=== PATIENT | male | born 1940 | race Caucasian/White ===

== ENCOUNTER 2016-11-27 13:05 | Day surgery (SDC) | payer MEDICARE, BC ==
[~2016-11-27 13:05] MED LIST: ALPR2TAB3 PO; CLON0.5T PO; CLOP75TA PO; FEXO180 PO; FINA1TAB2 PO; GABA300C3 PO; HYDR-3129 PO; PROP10TA6 PO; PROT40TA PO; RIVA20 PO; TAMS5CAP PO; ULTR50TA PO
[2016-11-27 13:25] VITALS: BP 129/65; PULSE 64; RESP 18; TEMP 98.1; O2SAT 96
[2016-11-27] MEDS ORDERED: ZYRT10CA PO (13:53)
[2016-11-27] MEDS ORDERED: LACTCAP8 PO (13:53)
[2016-11-27] MEDS ORDERED: TAMS0.4C4 PO (13:53)
[2016-11-27] MEDS ORDERED: TRAM50TA PO (13:53)
[2016-11-27] MEDS ORDERED: ALPR.25 PO (13:53)
[2016-11-27] MEDS ORDERED: GABA300C5 PO (13:53)
[2016-11-27] MEDS ORDERED: FINA5TAB2 PO (13:53)
[2016-11-27] MEDS ORDERED: XARE20TA PO (13:53)
[2016-11-27] MEDS ORDERED: ATOR40TA16 PO (13:53)
[2016-11-27] MEDS ORDERED: OMEP40CA2 PO (13:53)
--- NOTE | 2016-11-27 15:13 | RADRPT ---
EXAM DATE/TIME: 11/27/2016 00:00 [facility] COMPARISON : No previous studies available for comparison. INDICATIONS : consult for renal cryoablation OBJECTIVE: Temperature: 98.1 Heart Rate: 64 Blood Pressure: 129/65 Respiratory: 18 Oximetry: 96% PNEUMONIA VACCINE: YES HISTORY OF PRESENT ILLNESS: Incidentally discovered solid left renal mass. PAST MEDICAL HISTORY : 1. AFIB 2. Cardiovascular disease. 3. Peripheral vascular disease. 6. PAST SURGICAL HISTORY : 1. CABG 2. Peripheral vascular stent. 3. Lobectomy. 4. BILATERAL HERNIA REPAIR 5. AFIB ABLATION 6. CARDIAC STENT SOCIAL HISTORY : No alcohol use. Tobacco;former. ALLERGIES: 1. NKDA 1. Xarelto (Rivaroxaban) 20 mg q.d. 2. Prilosec (Omeprazole) 40 mg q.d. 3. ATORVASTATIN 40 mg q.d. 4. FINASTERIDE 5 mg q.d. 5. TAMSULOSIN 0.4 mg q.d. 6. GABAPENTIN 300 mg q.d. 7. XANAX 0.25 mg prn 8. TRAMADOL 50 mg prn 9. PROBIOTIC q.d. 10. ZYRTEC 10 mg q.d. IMAGING STUDIES: Outside contrast MRI revealing slightly greater than 2 cm solid left renal mass arising superficially in the posterolateral cortex. No signs of local or regional metastatic disease. ASSESSMENT: Patient appears to be an excellent candidate for renal biopsy and cryoablation. PLAN: Patient scheduled for renal biopsy and cryoablation tomorrow Rodney Payton MD on November 27, 2016 at 15:09 Board Certified Radiologist. This report was verified electronically.
== END 2016-11-27 14:46 | disposition home or self-care (01) ==
LOC: HROP 13:05 → HRIP 13:07 → HROP 14:46
PROVIDERS: ATTEND Urology
DX: N28.89 Other specified disorders of kidney and ureter (principal); I73.9 Peripheral vascular disease, unspecified; I48.91 Unspecified atrial fibrillation; I25.10 Atherosclerotic heart disease of native coronary artery without angina pectoris; Z95.1 Presence of aortocoronary bypass graft; Z95.5 Presence of coronary angioplasty implant and graft; Z87.891 Personal history of nicotine dependence

== ENCOUNTER 2016-11-28 06:43 | Day surgery (SDC) | payer MEDICARE, BC ==
[~2016-11-28] VITALS: Ht 181.6 cm; Wt 76.4 kg
[~2016-11-28 06:43] MED LIST changes: +ALPR.25 PO; -ALPR2TAB3 PO; +ATOR40TA16 PO; -CLON0.5T PO; -CLOP75TA PO; -FEXO180 PO; -FINA1TAB2 PO; +FINA5TAB2 PO; -GABA300C3 PO; +GABA300C5 PO; -HYDR-3129 PO; +LACTCAP8 PO; +OMEP40CA2 PO; -PROP10TA6 PO; -PROT40TA PO; -RIVA20 PO; +TAMS0.4C4 PO; -TAMS5CAP PO; +TRAM50TA PO; -ULTR50TA PO; +XARE20TA PO; +ZYRT10CA PO
[2016-11-28 07:05] VITALS: BP 125/63; PULSE 57; RESP 20; TEMP 97.6; O2SAT 95
[2016-11-28 07:53] LABS: AUTOMATED NEUTROPHIL # 1.4 TH/MM3 (1.8-7.7); BASOPHIL % 0.9 % (0.0-2.0); HEMATOCRIT 35.2 % (39.0-51.0); HEMO FLAGS DIFF FINAL; LYMPH % 28.3 % (9.0-44.0); LYMPHOCYTE # 0.9 TH/MM3 (1.0-4.8); MEAN CELL VOLUME 87.6 FL (80.0-100.0); MEAN CORPUSCULAR HEMOGLOBIN 30.4 PG (27.0-34.0); MEAN CORPUSCULAR HGB CONC 34.7 % (32.0-36.0); MONO % 22.7 % (0.0-8.0); NEUT % 47.1 % (16.0-70.0); PLATELET COUNT 230 TH/MM3 (150-450); RED BLOOD COUNT 4.02 MIL/MM3 (4.50-5.90); RED CELL DISTRIBUTION WIDTH 14.2 % (11.6-17.2); WHITE BLOOD COUNT 3.1 TH/MM3 (4.0-11.0)
[2016-11-28] MEDS ORDERED: SODIUM CHLORID 0.9% 500 ML IV SCH (08:00)
[2016-11-28] MEDS ORDERED: SODIUM CHLOR 0.9% 1000 ML INJ 1,000 ML IV SCH (08:00)
[2016-11-28] MEDS ORDERED: LACTATED RINGER'S 1000 ML IV SCH (08:00)
[2016-11-28 08:05] LABS: APTT (PATIENT) 27.5 SEC (24.3-30.1); INTERNATIONAL NORMALIZED RATIO 1.1 RATIO; PROTHROMBIN TIME - PATIENT 11.7 SEC (9.8-11.6)
[2016-11-28 08:07] LABS: BICARBONATE 27.7 MEQ/L (21.0-32.0); POTASSIUM 4.1 MEQ/L (3.5-5.1)
[2016-11-28] MEDS ORDERED: METOPROLOL TARTRATE 25 MG TAB PO PRN (08:15)
[2016-11-28] MEDS ORDERED: INSULIN HUMAN REGULAR 1,000 UNITS/10 ML VIAL SQ PRN (08:15)
[2016-11-28] MEDS ORDERED: ceFAZolin 2 GM PREMIX 50 ML IV SCH (08:15)
[2016-11-28] MEDS ORDERED: LIDOCAINE 1%/EPINEPHrine 1:100,000 SOLN 20 ML VIAL ONE (08:17)
--- NOTE | 2016-11-28 09:14 | EKG ---
Date Performed: 11/28/2016 Time Performed: 07:15:26 PTAGE: 76 years EKG: SINUS BRADYCARDIA BORDERLINE ECG NO PREVIOUS TRACING DOCTOR: Mynor Cramer Interpretating Date/Time 11/28/2016 09:13:48
[2016-11-28] MEDS ORDERED: NEOSTIGMINE METHYLSULFATE 10 MG/10 ML VIAL IV PUSH ONE (11:44)
[2016-11-28] MEDS ORDERED: PHENYLEPH/NS 1000 MCG/10 ML SYR IV ONE (11:44)
[2016-11-28] MEDS ORDERED: ePHEDrine/NS 25 MG/5 ML SYR IV ONE (11:44)
[2016-11-28] MEDS ORDERED: ONDANSETRON HCL 4 MG/2 ML VIAL IV PUSH ONE (11:44)
[2016-11-28] MEDS ORDERED: PROPOFOL 200 MG/20 ML AMP IV ONE (11:44)
[2016-11-28] MEDS ORDERED: DO NOT ADM ANY ANTICOAGULANT DRUGS XX PRN (13:15)
[2016-11-28] MEDS ORDERED: PILL SPLITTER OTHER PRN (13:30)
[2016-11-28] MEDS ORDERED: fentaNYL CITRATE 250 MCG/5 ML AMP ONE (13:31)
[2016-11-28] MEDS ORDERED: MORPHINE SULFATE 4 MG/ML INJ ONE (13:32)
[2016-11-28 14:00] LABS: AUTOMATED NEUTROPHIL # 1.2 TH/MM3 (1.8-7.7); BASOPHIL % 0.6 % (0.0-2.0); EOSINOPHIL % 0.6 % (0.0-4.0); HEMATOCRIT 33.2 % (39.0-51.0); HEMO FLAGS DIFF FINAL; LYMPH % 31.5 % (9.0-44.0); LYMPHOCYTE # 0.8 TH/MM3 (1.0-4.8); MEAN CELL VOLUME 87.4 FL (80.0-100.0); MEAN CORPUSCULAR HEMOGLOBIN 29.8 PG (27.0-34.0); MEAN CORPUSCULAR HGB CONC 34.1 % (32.0-36.0); MONO % 19.4 % (0.0-8.0); NEUT % 47.9 % (16.0-70.0); PLATELET COUNT 208 TH/MM3 (150-450); RED CELL DISTRIBUTION WIDTH 14.2 % (11.6-17.2); WHITE BLOOD COUNT 2.5 TH/MM3 (4.0-11.0)
[2016-11-28] MEDS ORDERED: HYDROmorphone HCL 2 MG TAB PO PRN (14:00)
[2016-11-28 14:30] VITALS: BP 141/79; PULSE 67; RESP 20; TEMP 97.7; O2SAT 95
--- NOTE | 2016-11-28 14:32 | PD.RAD ---
Post CT Procedure Prog Note Pre Procedure Diagnosis: (1) Left renal mass Post Procedure Diagnosis: (1) Left renal mass Procedure Date: Nov 28, 2016 Supervising Radiologist: Rodney Payton Proceduralist/Assist: RT Anthony(R)(CT) Anesthesia: General Plan of Activity Patient to Unit: PACU Patient Condition: Good See PACS Report for procedural detail/treatment Biopsy Side: Left Biopsy Procedure: Kidney Specimen: Core Biopsy Additional Detail: with cryoablation Rodney Payton MD Nov 28, 2016 14:32
[2016-11-28 15:00] VITALS: BP 120/66; PULSE 68; RESP 20; O2SAT 94
[2016-11-28 15:22] LABS: BASOPHIL % 0.4 % (0.0-2.0); EOSINOPHIL % 0.2 % (0.0-4.0); HEMATOCRIT 32.9 % (39.0-51.0); HEMO FLAGS DIFF FINAL; LYMPH % 13.1 % (9.0-44.0); LYMPHOCYTE # 0.7 TH/MM3 (1.0-4.8); MEAN CELL VOLUME 87.6 FL (80.0-100.0); MEAN CORPUSCULAR HEMOGLOBIN 30.4 PG (27.0-34.0); MEAN CORPUSCULAR HGB CONC 34.7 % (32.0-36.0); MONO % 12.2 % (0.0-8.0); NEUT % 74.1 % (16.0-70.0); PLATELET COUNT 209 TH/MM3 (150-450); RED BLOOD COUNT 3.76 MIL/MM3 (4.50-5.90); RED CELL DISTRIBUTION WIDTH 14.3 % (11.6-17.2); WHITE BLOOD COUNT 5.4 TH/MM3 (4.0-11.0)
[2016-11-28 15:30] VITALS: BP 131/67; PULSE 72; RESP 20; O2SAT 94
--- NOTE | 2016-11-28 15:57 | RADRPT ---
EXAM DATE/TIME: 11/28/2016 10:49 INDICATIONS : Left renal mass Anesthesia and pain control was provided by the Anesthesia department. DEVICE(S): 1.) 17 gauge Cryoablation probe x3 MEDICAL HISTORY : Cardiovascular disease. SURGICAL HISTORY : None. ENCOUNTER: Initial ACUITY: 1 day PAIN SCORE: 0/10 LOCATION: Left upper quadrant PROCEDURE : 1. CT guided cryoablation. Under sterile conditions and using aseptic technique with CT guidance the mass was localized and sati sfactory approach was taken to access the lesion. Using automated exposure control and adjustment of the mA and/or kV according to patient size, radiation dose was kept as low as reasonably achievable to obtain optimal diagnostic quality images. [employer] Cryoprobes were employed using percutaneous technique employing the prescribed probes. A freeze-thaw, freeze-thaw technique was employed and serial imaging demonstrated an ice ball encomp assing the entire lesion. Post procedure images demonstrate expected postoperative changes without e vidence of hematoma. CONCLUSION: Uncomplicated cryoablation as above. Rodney Payton MD on November 28, 2016 at 15:54 Board Certified Radiologist. This report was verified electronically.
[2016-11-28 16:16] VITALS: BP 109/66; PULSE 72; RESP 20; O2SAT 97
--- NOTE | 2016-11-29 14:05 | RADRPT ---
EXAM DATE/TIME: 11/28/2016 10:49 [facility] COMPARISON: No previous studies available for comparison. INDICATIONS : Left renal mass. BIOPSY SITE: Left Anesthesia and pain control was provided by the Anesthesia department. DEVICE(S): 1.) 16 gauge Temno core biopsy needle MEDICAL HISTORY : Cardiovascular disease. SURGICAL HISTORY : None. ENCOUNTER: Initial ACUITY: 1 day PAIN SCORE: 0/10 LOCATION: Left upper quadrant A total of one core specimen(s) were obtained and sent to the laboratory for pathologic evaluation. PROCEDURE: 1. CT guided renal biopsy. 2. Conscious sedation with continuous EKG and oximetry monitoring. 3. EKG and oximetry remained stable throughout the procedure. Prior to the procedure informed consent was obtained. Any appropriate prior imaging studies were rev iewed. Using automated exposure control and adjustment of the mA and/or kV according to patient size, radiat ion dose was kept as low as reasonably achievable to obtain optimal diagnostic quality images. The site was prepped in a sterile fashion. Full sterile technique was used, including cap, mask, taj rile gloves and gown and a large sterile sheet. Hand hygiene and 2% chlorhexidine and/or betadine/al cohol prep was utilized per protocol for cutaneous antisepsis. The skin and subcutaneous tissues wer e infiltrated with local anesthetic solution. With CT guidance the previously identified target was localized. Biopsy was performed using the presc ribed needle as above. Adequate hemostasis was obtained with compression at the puncture site. Follow-up CT scan reveals no hemorrhage. The patient tolerated the procedure well and there were no complications. The patient was returned to the Radiology Outpatient Unit in stable condition. CONCLUSION: Uncomplicated CT guided biopsy. Rodney Payton MD on November 29, 2016 at 14:03 Board Certified Radiologist. This report was verified electronically.
== END 2016-11-28 17:36 | disposition home or self-care (01) ==
LOC: HSDC 06:43 → HRIP 06:46 → EDSTATUS 09:00 → HSDC 17:36
PROVIDERS: ATTEND Urology
DX: C64.2 Malignant neoplasm of left kidney, except renal pelvis (principal); R00.1 Bradycardia, unspecified
CPT/HCPCS: 50200; 50593; 77012; 77013; 80048; 85025; 85610; 85730; 88305; 93005; C2618; J0690; J2270; J3010; J7120; J2370; J2405; J2710

== ENCOUNTER 2016-11-30 09:29 | Day surgery (SDC) | payer MEDICARE, BC ==
[2016-11-30 10:00] VITALS: BP 149/71; PULSE 69; RESP 20; TEMP 98.3; O2SAT 94
[2016-11-30 10:19] VITALS: BP 149/71; PULSE 69; RESP 20; TEMP 98.3; O2SAT 94
[2016-11-30 10:48] LABS: AUTOMATED NEUTROPHIL # 4.4 TH/MM3 (1.8-7.7); BASOPHIL % 0.3 % (0.0-2.0); EOSINOPHIL % 0.1 % (0.0-4.0); HEMATOCRIT 33.2 % (39.0-51.0); HEMO FLAGS DIFF FINAL; LYMPH % 15.1 % (9.0-44.0); MEAN CELL VOLUME 88.2 FL (80.0-100.0); MEAN CORPUSCULAR HEMOGLOBIN 30.1 PG (27.0-34.0); MEAN CORPUSCULAR HGB CONC 34.1 % (32.0-36.0); MONO % 19.5 % (0.0-8.0); PLATELET COUNT 182 TH/MM3 (150-450); RED BLOOD COUNT 3.76 MIL/MM3 (4.50-5.90); RED CELL DISTRIBUTION WIDTH 13.9 % (11.6-17.2); WHITE BLOOD COUNT 6.9 TH/MM3 (4.0-11.0)
[2016-11-30 10:50] LABS: BACTERIA, URINE RARE /hpf; BLOOD, URINE LARGE (NEG); COMMENT (UR) CULT NOT INDICATED; CULTURE IF INDICATED CULT NOT INDICATED; GLUCOSE,URINE NEG (NEG); KETONE, URINE NEG (NEG); MUCUS URINE FEW /lpf (OCC); NITRITE,URINE NEG (NEG); PH, URINE 6.5 (5.0-8.5); URINE COLOR LIGHT-YELLOW (YELLW/STRAW)
[2016-11-30 11:00] LABS: BICARBONATE 28.3 MEQ/L (21.0-32.0); POTASSIUM 3.9 MEQ/L (3.5-5.1)
[2016-11-30] MEDS ORDERED: HYDROmorphone HCL PF 1 MG/ML VIAL IVS PRN ×2 (11:00)
[2016-11-30] MEDS ORDERED: oxyCODONE/ACETAMINOPHEN 5 MG/325 MG TAB PO PRN ×2 (11:00)
--- NOTE | 2016-11-30 11:38 | RADRPT ---
EXAM DATE/TIME: 11/30/2016 11:21 [facility] COMPARISON: No previous studies available for comparison. INDICATIONS : Abdominal pain post cryoablation yesterday. ORAL CONTRAST: No oral contrast ingested. RADIATION DOSE: 5.78 CTDIvol (mGy) MEDICAL HISTORY : Cardiovascular disease. SURGICAL HISTORY : Left renal cryoablation. ENCOUNTER: Initial ACUITY: 1 day PAIN SCALE: 6/10 LOCATION: Left lower quadrant TECHNIQUE: Volumetric scanning of the abdomen and pelvis was performed. Using automated exposure control and ad justment of the mA and/or kV according to patient size, radiation dose was kept as low as reasonably achievable to obtain optimal diagnostic quality images. FINDINGS: LOWER LUNGS: Minimal scarring or atelectasis in the lung bases. LIVER: Homogeneous density without lesion. There is no dilation of the biliary tree. No calcified gallston es. SPLEEN: Normal size without lesion. PANCREAS: Within normal limits. KIDNEYS: Expected postoperative changes in the left kidney following recent cryoablation with mild perinephric fatty tissue stranding and minimal hematoma in the posterior pararenal space. No evidence of hydrone phrosis. No evidence of subcapsular hematoma. Contralateral right kidney is stable and benign. ADRENAL GLANDS: Within normal limits. VASCULAR: There is no aortic aneurysm. BOWEL/MESENTERY: The stomach, small bowel, and colon demonstrate no acute abnormality. There is no free intraperitone al air or fluid. ABDOMINAL WALL: Within normal limits. RETROPERITONEUM: There is no lymphadenopathy. BLADDER: Normal appearance. Mild enlargement of the prostate impressing the bladder base. No evidence of clot retention REPRODUCTIVE: Mild prostatic enlargement. INGUINAL: There is no lymphadenopathy or hernia. MUSCULOSKELETAL: Within normal limits for patient age. CONCLUSION: Expected postoperative findings in the left retroperitoneum following recent cryoablation of renal ma ss. No unexpected procedural complication. No acute CT findings. Rodney Payton MD on November 30, 2016 at 11:31 Board Certified Radiologist. This report was verified electronically.
[2016-11-30 11:40] VITALS: BP 113/62; PULSE 65; RESP 18; TEMP 98.6; O2SAT 90
[2016-11-30 11:46] VITALS: BP 114/60; PULSE 68; RESP 18; O2SAT 96
[2016-11-30 12:00] VITALS: BP 119/65; PULSE 76; RESP 20; O2SAT 93
[2016-11-30 12:10] VITALS: RESP 18
--- NOTE | 2016-12-10 09:23 | RADRPT ---
EXAM DATE/TIME: 11/30/2016 00:00 [facility] COMPARISON : INDICATIONS : FOLLOW UP POST RENAL CRYOABLATION OBJECTIVE: Temperature: 98.3 Heart Rate: 69 Blood Pressure: 149/71 Respiratory: 20 Oximetry: 94 PNEUMONIA VACCINE: HISTORY OF PRESENT ILLNESS: The patient underwent uncomplicated left renal biopsy and cryoablation treatment on November 28. He repo rted yesterday that he was still experiencing significant abdominal discomfort and constitutional sym ptoms including fatigue and anorexia. He did not report any fevers. He had been able to take p.o. He had been advised that we would be happy to see him for checkup in the outpatient unit or he could pro ceed to the emergency room. This morning, the patient elected to present for evaluation. PAST MEDICAL HISTORY: 1. Renal mass status post biopsy and cryoablation 2. Cardiovascular disease. 3. Hypercholesterolemia. 4. BENIGN PROSTATIC HYPERPLASIA 5. Arthritis. PAST SURGICAL HISTORY : 1. CABG 2. RIGHT LOWER LOBE THORACOTOMY 3. AFIB ABLATION 4. BILATERAL CATARACTS ALLERGIES: 1. NKDA MEDICATIONS: 1. XANAX 0.25 mg prn 2. ATORVASTATIN 40 mg q.h.s. 3. ZYRTEC 10 mg q.d. 4. FINASTERIDE 5 mg q.d. GABAPENTIN 300 mg q.h.s. OMEPRAZOLE 40 mg q.d. 7. Xarelto (Rivaroxaban)20 mg q.d. 8. TRAMADOL 50 mg q.d. 9. TAMSULOSIN 0.4 mg q.h.s. PHYSICAL EXAMINATION: The patient is alert and oriented. Neurologically intact throughout Lungs are clear. Abdomen is soft, nontender. No mass or organomegaly. The patient reports pain generalized over the lo w abdomen and pelvis. The left flank region is nontender with no evidence of swelling, bruising or erythema. IMAGING STUDIES: A CT scan of the abdomen was obtained to exclude acute pathology. The skin reveals expected postproce dure changes in the left kidney and perinephric tissues consistent with the recent treatment. No unex pected complication. The remainder of the abdomen is stable and entirely benign in appearance. LAB STUDIES: Stable satisfactory CBC and electrolyte values. ASSESSMENT: Without signs of procedural complication or other acute process, patient's clinical symptoms are felt most probably related to post ablation syndrome versus coincidental unrelated self-limiting illness. PLAN: Care will be supportive. There is no indication for admission. We will perform telephone followup and the patient is instructed to call us or present to the emergency room for new concerning symptoms or problems as appropriate. This report is rendered in delayed fashion following my return to the interventional service and gen eration of electronic requisition for the PACS system. Rodney Payton MD on December 10, 2016 at 8:58 Board Certified Radiologist. This report was verified electronically.
== END 2016-11-30 13:35 | disposition home or self-care (01) ==
LOC: HROP 09:29 → HRIP 09:32 → HROP 13:35
PROVIDERS: ATTEND Radiology Body Imaging
DX: Z09 Encounter for follow-up examination after completed treatment for conditions other than malignant neoplasm (principal); Z87.898 Personal history of other specified conditions
CPT/HCPCS: 74176; 80048; 81001; 85025; J1170

== ENCOUNTER → 2017-09-16 | Outpatient (CLI) | payer BC, MEDICARE, OTHER ==
[2017-09-16 10:22] LABS: CREATININE 0.72 MG/DL (0.60-1.30)
== END ==
LOC: ELAB 09:20
PROVIDERS: ATTEND Colon & Rectal Surgery
DX: R10.31 Right lower quadrant pain (principal); R19.4 Change in bowel habit; K59.04 Chronic idiopathic constipation
CPT/HCPCS: 36415; 82565; 84520